=== PATIENT | female | born 1950 | race Caucasian/White ===

== ENCOUNTER 2017-09-01 13:48 | Outpatient (CLI) | payer MEDICARE, BC ==
--- NOTE | 2017-09-01 14:45 | MMO ---
BILATERAL DIGITAL SCREENING MAMMOGRAMS WITH CAD COMPARISON: 07/22/2016, 07/28/2015, and 05/02/2014. FINDINGS: There are scattered fibroglandular densities with occasional benign calcifications. No suspicious m asses, calcifications, or architectural distortion are seen. IMPRESSION: BI-RADS Category 2: Benign findings. Routine annual mammographic screening is recommended. POS: CYNTHIA
== END 2017-09-01 13:49 | disposition home or self-care (01) ==
LOC: MAMMO 13:48
PROVIDERS: ATTEND Family Medicine
DX: Z12.31 Encounter for screening mammogram for malignant neoplasm of breast (principal)
CPT/HCPCS: 77067; G0202

== ENCOUNTER 2018-09-26 10:38 | Outpatient (CLI) | payer MEDICARE, BC | END 2018-09-26 10:39 | disposition home or self-care (01) | LOC: BICMAMMO 10:38 | PROVIDERS: ATTEND Family Medicine | DX: Z12.31 Encounter for screening mammogram for malignant neoplasm of breast (principal) | CPT/HCPCS: 77063; 77067 ==

== ENCOUNTER 2019-11-10 10:32 | Outpatient (CLI) | payer MEDICARE, BC ==
--- NOTE | 2019-11-10 11:49 | MMO ---
Bilateral MAMMO Bilat Screen [facility]. CLINICAL HISTORY: Patient is 69 years old and is seen for screening. The patient has no family history of breast cancer. The patient has no personal history of cancer. VIEWS: The views performed were: bilateral craniocaudal with tomosynthesis and bilateral mediolateral oblique with tomosynthesis. FILMS COMPARED: The present examination has been compared to prior imaging studies performed at [facility] on 06/26/2015, 07/22/2016, 09/01/2017 and 09/26/2018. This study has been interpreted with the assistance of computer-aided detection. MAMMOGRAM FINDINGS: There are scattered fibroglandular densities. There are benign appearing calcifications seen in both breasts. There are no suspicious masses, suspicious calcifications, or new areas of architectural distortion. IMPRESSION: THERE IS NO MAMMOGRAPHIC EVIDENCE OF MALIGNANCY. A ROUTINE FOLLOW-UP MAMMOGRAM IN 1 YEAR IS RECOMMENDED. THE RESULTS OF THIS EXAM WERE SENT TO THE PATIENT. ACR BI-RADS Category 2 - Benign finding MAMMOGRAPHY NOTE: 1. A negative mammogram report should not delay a biopsy if a dominant of clinically suspicious mass is present. 2. Approximately 10% to 15% of breast cancers are not detected by mammography. 3. Adenosis and dense breasts may obscure an underlying neoplasm. Reported by: VONDA RAMÍREZ MD Electonically Signed: [id number]
== END 2019-11-10 10:33 | disposition home or self-care (01) ==
LOC: BICMAMMO 10:32
PROVIDERS: ATTEND Family Medicine
DX: Z12.31 Encounter for screening mammogram for malignant neoplasm of breast (principal)
CPT/HCPCS: 77063; 77067

== ENCOUNTER 2020-03-15 22:02 | Inpatient (IN) | payer MEDICARE, BC ==
[~2020-03-15 22:02] MED LIST: Iopamidol 370 76% 100 ML VIAL ONE
[2020-03-15 23:31] LABS: #Eosinphils 0.1 thou/uL (0.0-0.7); #Lymphocytes 2.5 thou/uL (1.20-3.40); #Neutrophils 8.9 thou/uL (1.40-6.50); %Basophils 0.2 % (0.0-1.0); %Eosinophils 0.5 % (0.0-10.0); %Monocytes 8.2 % (0.0-10.0); %Neutrophils 71.2 % (42.0-75.0); Hemoglobin 13.3 g/dL (12.0-16.0); Mean Corpuscular HGB CONC 32.3 g/dL (32.0-36.0); Mean Corpuscular Hemoglobin 28.9 pg (27.0-31.0); Mean Corpuscular Volume 89.3 fL (78.0-98.0); Mean Platelet Volume 7.8 fL (7.4-10.4); Platelet Count 323 thou/uL (130-400); RBC Distribution Width 11.3 % (11.5-14.5); Red Blood Cell (RBC) Count 4.59 mill/uL (4.20-5.40); White Blood Cell (WBC) Count 12.5 thou/uL (4.8-10.8)
[2020-03-15 23:52] LABS: Bilirubin Negative (Negative); Blood, Urine Negative (Negative); Clarity Clear (Clear); Glucose, Urine (Dipstick) Normal (Negative); Leukocyte 75 Leu/uL (Negative); Nitrite Negative (Negative); Protein, Urine (Dipstick) Negative (Neg-Trace); Urobilinogen Normal mg/dL (Less than 2); WBC/HPF 0-3 HPF (0-3)
[2020-03-15 23:53] LABS: Bacteria/HPF Rare-Few HPF (None Seen)
[2020-03-15 23:57] LABS: ALT (SGPT) 14 U/L (8-55); AST (SGOT) 16 U/L (5-34); Albumin 3.9 g/dL (3.4-4.8); Alkaline Phosphatase 87 U/L (40-110); Anion Gap 16 mmol/L (10-20); BUN (Urea Nitrogen) 12 mg/dL (9.8-20.1); Bilirubin, Total 0.3 mg/dL (0.2-1.2); Calc. Creatinine Clearance 0 mL/min (70-130); Calcium 9.8 mg/dL (7.8-10.44); Carbon Dioxide 26 mmol/L (23-31); Chloride 98 mmol/L (98-107); Estimated GFR-MDRD Greater than 90; Globulin 3.4 g/dL (2.4-3.5); Glucose 137 mg/dL (80-115); Lipase 14 U/L (8-78); Potassium 3.5 mmol/L (3.5-5.1); Protein, Total 7.3 g/dL (6.0-8.3); Sodium 136 mmol/L (136-145)
[2020-03-16] MEDS ORDERED: Piperacillin/Tazobactam 4.5 GM VIAL ONE (02:31)
[2020-03-16] MEDS ORDERED: metroNIDAZOLE 500 MG in Premix Bag 1 BAG IVPB SCH (02:45)
[2020-03-16 03:55] VITALS: BMI 37.3
[2020-03-16] MEDS ORDERED: Ondansetron PF 4 MG/2 ML Vial IVP PRN (04:26)
[2020-03-16] MEDS ORDERED: Acetaminophen 650 MG Suppository PR PRN (04:26)
[2020-03-16] MEDS ORDERED: Ondansetron ODT 4 MG TAB PO PRN (04:26)
--- NOTE | 2020-03-16 04:34 | PDOC.HHP ---
Hospitalist HPI - History of Present Illness abd pain fever History of Present Illness: Case of an 69y/o fem w pmhx of hypercholesterolemia, cad and htn who comes to hospital due to fever. patient refers she was on her usual state of health until wednesday when she started with fever and abd pain, she went to an ed where she was dx with diverticulitis and sent home with rest and po abx. patient refered she finished her treatment but continued with some symptoms so she called her pcp wich prescribed augmentin. patient states that despite this today she was not feeling well and a 101 fever for which she came to hospital for evaluation. here patient had a ct which showed diverticulitis with abscess for which hospitalist was called for further management and evaluation. Hospitalist ROS - Review of Systems All other systems reviewed; all pertinent +/- noted in HPI/Subj Hospitalist History - Past Medical History Cardiac: reports: CAD, HTN, Hyperlipidemia - Past Surgical History Past Surgical History: reports: Appendectomy, , Hysterectomy - Family History Family History: reports: hypertension - Social History Smoking Status: Never smoker Alcohol: reports: None Drugs: reports: none Living Situation: With Family Activity level: independent ambulation - Exam General Appearance: awake alert Eye: PERRL, anicteric sclera ENT: normocephalic atraumatic, no oropharyngeal lesions Neck: supple, symmetric, no JVD, no thyromegaly Heart: RRR, no murmur, no gallops, no rubs Respiratory: CTAB, no wheezes, no rales, no ronchi Gastrointestinal: soft, non-distended, normal bowel sounds, tender to palpation Extremities: no cyanosis, no clubbing, no edema Skin: normal turgor, no lesions, no rashes Neurological: cranial nerve grossly intact, normal sensation to touch, no weakness, no focal deficits, no new deficit Musculoskeletal: normal tone, normal strength, no muscle wasting Psychiatric: normal affect, normal behavior, A&O x 3 Hospitalist Results - Labs Result Diagrams: 03/15/20 23:18 03/15/20 23:18 Lab results: WBC 12.5 thou/uL (4.8-10.8) H 03/15/20 23:18 Hgb 13.3 g/dL (12.0-16.0) 03/15/20 23:18 Hct 41.0 % (36.0-47.0) 03/15/20 23:18 MCV 89.3 fL (78.0-98.0) 03/15/20 23:18 Plt Count 323 thou/uL (130-400) 03/15/20 23:18 Neutrophils % 71.2 % (42.0-75.0) 03/15/20 23:18 Sodium 136 mmol/L (136-145) 03/15/20 23:18 Potassium 3.5 mmol/L (3.5-5.1) 03/15/20 23:18 Chloride 98 mmol/L (98-107) 03/15/20 23:18 Carbon Dioxide 26 mmol/L (23-31) 03/15/20 23:18 BUN 12 mg/dL (9.8-20.1) 03/15/20 23:18 Creatinine 0.64 mg/dL (0.6-1.1) 03/15/20 23:18 Glucose 137 mg/dL (80-115) H 03/15/20 23:18 Calcium 9.8 mg/dL (7.8-10.44) 03/15/20 23:18 Total Bilirubin 0.3 mg/dL (0.2-1.2) 03/15/20 23:18 AST 16 U/L (5-34) 03/15/20 23:18 ALT 14 U/L (8-55) 03/15/20 23:18 Alkaline Phosphatase 87 U/L (40-110) 03/15/20 23:18 Serum Total Protein 7.3 g/dL (6.0-8.3) 03/15/20 23:18 Albumin 3.9 g/dL (3.4-4.8) 03/15/20 23:18 Lipase 14 U/L (8-78) 03/15/20 23:18 Urine Ketones Negative mg/dL (Negative) 03/15/20 23:29 Urine Blood Negative (Negative) 03/15/20 23:29 Urine Nitrite Negative (Negative) 03/15/20 23:29 Ur Leukocyte Esterase 75 Usha/uL (Negative) A 03/15/20 23:29 Urine RBC 4-6 HPF (0-3) A 03/15/20 23:29 Urine WBC 0-3 HPF (0-3) 03/15/20 23:29 Ur Squamous Epith Cells 4-6 HPF (0-3) A 03/15/20 23:29 Urine Bacteria Rare-Few HPF (None Seen) 03/15/20 23:29 - Radiology Interpretation CT scan - abdomen Status: report reviewed by me (diverticulitis with abscess) Hospitalist H&P A/P - Problem (1) Diverticulitis Code(s): K57.92 - DVTRCLI OF INTEST, PART UNSP, W/O PERF OR ABSCESS W/O BLEED Status: Acute (2) Abdominal abscess Code(s): CHL6550 - Status: Acute (3) HTN (hypertension) Code(s): I10 - ESSENTIAL (PRIMARY) HYPERTENSION Status: Acute (4) Hypercholesterolemia Code(s): E78.00 - PURE HYPERCHOLESTEROLEMIA, UNSPECIFIED Status: Acute - Plan Plan: diverticulitis with abscess - will place on npo, started on ivfs and iv abx with zosyn and clinda. blood cultures were taken, general surgeon consulted, might consider interventional radiologist htn - continue home meds when able hypercholesterolemia - continue home meds when able
[2020-03-16] MEDS: Sodium Chloride 0.9% 1,000 ML IV SCH ×2 (05:02→18:30)
--- NOTE | 2020-03-16 07:55 | CT ---
PRELIMINARY REPORT/[facility]/EMERGENCY AFTER HOURS PROCEDURE EXAM: CT Abdomen and CT Pelvis, with Contrast DATE/ TIME: 03/16/2020, 12:23 AM INDICATION: Rectal bleeding x 2-3 weeks; nausea; intermittent upper abdominal pain TECHNIQUE: Helical CT was performed through the abdomen and pelvis during the intravenous administra tion of 100 mL Isovue-370. GI contrast was not given. Coronal and sagittal reconstructions were generated and reviewed. Exam was performed using one or more of the following dose reduction techniq ues: automated exposure control, adjustment of the mA and/or kV according to patient size, or use of iterative reconstruction technique. COMPARISON: None. FINDINGS: The initial image begins at the subaortic valvular level. Asymmetric elevation of the rig ht hemidiaphragm is present with the dome of the diaphragm and liver are clipped from view. Visualized heart shows left atrial enlargement. Calcified atheroma in the posterior descending coron sandie artery is seen. Visualized lung bases are clear. Gallbladder is unremarkable. Visualized liver has a coarse parenchymal pattern and is hypoattenuated consistent with fatty infiltration. Pancreas is mildly atrophic. Spleen, adrenal glands and left kidney show normal enhancement. Right kidney has a 1.4 x 0.9 cm angiomyolipoma. Mild left hydrouret eronephrosis is seen. The abdominal aorta tapers containing moderate atherosclerotic calcified plaque which continues into the common iliac arteries. Appendix is not seen but there is no pericecal abnormality to suggest acute appendicitis. There is a phlegmon involving the sigmoid in the left mid pelvic region. Innumerable diverticula in the descending and sigmoidal segments of the colon are noted. Along the lateral margin of the inflamed s igmoid is a 3.7 x 3.4 x 3.7 cm fluid collection compatible with abscess. There is no perforation. Retroperitoneal edema fluid is seen. This process is distorting the bladder which shows subjacent re active wall thickening. This process also is compromising the distal left ureter causing the mild left hydroureteronephrosis. Uterus is absent. A moderate amount of retroperitoneal, intra-abdominal and extra-abdominal adipose tissue is seen. Di scogenic degenerative changes are seen throughout the spine with spondylosis in the visualized thoracic spine. IMPRESSION: 1. Fairly diffuse sigmoidal diverticulitis with intramural/ subjacent 3.7 x 3.4 x 3.7 cm abscess. --- a. associated reactive wall thickening of the urinary bladder. --- b. mild left hydroureteronephrosis due to compromise of the distal left ureter. --- c. left-sided colonic diverticulosis. --- d. a coexistent neoplastic process of the sigmoid cannot be excluded. 2. Cardiomegaly with coronary and aortoiliac atherosclerosis. 3. Hepatosteatosis. ELECTRONICALLY SIGNED BY: Anson Grullon DO March 16, 2020 1:26:17 AM CDT This report is intended for review by the ordering physician only, in accordance of law. If you recei ve this report in error, please call [facility] at [phone]. FINAL REPORT EXAM: CT ABDOMEN AND PELVIS HISTORY: Fever. Abdominal pain. COMPARISON: 02/18/2020 Procedure: Multiple contiguous axial images were obtained and a CT of the abdomen and pelvis with IV contrast. C oronal reformats were performed. FINDINGS: Lower Chest: within normal limits. Vessels: Normal caliber aorta. There is atherosclerosis Heart: Heart is enlarged. No significant pericardial fluid Abdomen: Portal vein:Patent Gallbladder: No calcified gallstones. Normal caliber wall. Liver: within normal limits. Pancreas: within normal limits. Spleen: within normal limits. Adrenals: within normal limits. Kidneys: Stable fat-containing hypodensity in the upper pole of right kidney. No evidence of right-si ded obstructive uropathy. There is mild dilatation of the left intra and extrarenal collecting system likely due to decreased motility from reactive changes secondary to an inflammatory process in the left hemipelvis. Peritoneum: No ascites or free air, no fluid collection. Bowel: Limited evaluation due to the lack of oral contrast administration. No small bowel obstruction . Ileocecal junction has a normal appearance. Appendix is difficult to appreciate. Redemonstration of diverticulosis the left hemicolon. Redemonstration of diverticulitis. Interval development of a fl uid collection with adjacent fat stranding in the left hemipelvis. Well-defined borders are not entirely evident. Lesion measures 2.8 x 3.8 cm. Developing abscess is favored. Mesentery and Retroperitoneum: No enlarged mesenteric or retroperitoneal lymph nodes. Abdominal Wall: within normal limits. Pelvis: Reproductive Organs: Uterus is surgically absent Pelvis: There is fluid and stranding in the pelvis secondary to aforementioned developing abscess in the left hemipelvis Bladder: Mass effect upon the urinary bladder secondary to inflammatory changes of left hemipelvis Bones: within normal limits. IMPRESSION: 1. This report is in agreement with the initial report by [facility]. 2. Diverticulosis along with diverticulitis involving the sigmoid colon. Associated findings as descr ibed in the initial report by [facility]. 3. Based on the location of the abscess, percutaneous drainage will not be possible. Transcribed Date/Time: 03/16/2020 8:05 AM
[2020-03-16] MEDS: Bisacodyl 10 MG SUPP PR PRN (08:43)
[2020-03-16] MEDS ORDERED: Piperacillin/Tazobactam 4.5 GM in Sodium Chloride 0.9% 100 ML IVPB SCH (09:00)
[2020-03-16] MEDS ORDERED: Piperacillin/Tazobactam 3.375 GM in Sodium Chloride 0.9% 100 ML IVPB SCH (12:00)
[2020-03-16] MEDS ORDERED: Clopidogrel Bisulfate 75 MG TAB PO SCH (14:00)
[2020-03-16] MEDS ORDERED: Nadolol 40 MG TAB PO SCH (14:00)
[2020-03-16] MEDS ORDERED: Aspirin 81 mg Enteric Coated Tablet PO SCH (14:00)
[2020-03-16] MEDS ORDERED: Hydrochlorothiazide 25 MG TAB PO SCH (14:00)
[2020-03-16] MEDS ORDERED: Rosuvastatin 10 MG TAB PO SCH (14:00)
[2020-03-16] MEDS ORDERED: Amlodipine 5 MG TAB PO SCH (14:00)
[2020-03-16] MEDS: Piperacillin/Tazobactam 3.375 GM in Sodium Chloride 0.9% 100 ML IVPB SCH ×2 (14:08→20:35)
--- NOTE | 2020-03-16 14:18 | CON ---
DATE OF CONSULTATION: 03/16/2020 CHIEF COMPLAINT: Diverticulitis. HISTORY OF PRESENT ILLNESS: This is a 69-year-old female who was diagnosed with diverticulitis in February, was placed on outpatient antibiotics. She returns with fevers and increased pain and bloating. She had a bowel movement this morning. She feels better. Her pain is more controlled. She states that her pain is only mild now, sharp in the left lower quadrant. She had fever to 101 at home. Other than when this started last night, she had never had diverticulitis before. No previous colon surgery. She has had through lower midline incision twice. She has never had colonoscopy. She said she does the stool tests for that. No family history of GI malignancy, colon cancer, or polyposis syndrome. She denies chronic blood in stool, fever, chills, nausea, vomiting, or anorexia. PAST MEDICAL HISTORY: Includes: 1. Hypertension. 2. Dyslipidemia. 3. GERD. SURGICAL HISTORY: . MEDICINES: 1. Estradiol. 2. Plavix. 3. Ramipril. 4. Nexium. 5. Nadolol. 6. Crestor. 7. Aspirin. 8. Hydrochlorothiazide. 9. Amlodipine. ALLERGIES: NO KNOWN DRUG ALLERGIES. SOCIAL HISTORY: She denies smoking, alcohol, or other drugs. She is . REVIEW OF SYSTEMS: Ten-system review of systems is otherwise negative unless described above. PHYSICAL EXAMINATION: VITAL SIGNS: Her pulse is 90, respirations 17, temperature is afebrile, blood pressure is 138/69. HEENT: Sclerae are anicteric. Oropharynx clear. NECK: No lymphadenopathy. CHEST: Clear. HEART: Regular rate. ABDOMEN: Soft. She is mildly tender in the left lower quadrant with localized guarding. No rebound. No diffuse peritoneal signs. Well-healed low midline incision without hernia. LABORATORY DATA: White blood cell count is 12 and hemoglobin is 13. Creatinine is 0.64. CT scan reveals diverticulitis with left lower quadrant abscess. ASSESSMENT: Diverticulitis with localized abscess. PLAN: I discussed with Dr. Hernández. This is unlikely to be accessible via perc drain. I recommend continue hospitalization for IV antibiotics. Zosyn is adequate antibiotic coverage. He is going to discuss with the radiologist to see if they think that it is possible to perc drain this abscess. If not, likely going to need a surgery during this hospitalization. Would attempt to do prep before that, that surgery would not be performed until probably mid week. Continue IV antibiotics for now. We will allow clear liquids today given that she is not going to have any invasive procedures. Job ID: [id number]
[2020-03-16] MEDS: Estradiol 1 MG TAB PO SCH (20:28)
[2020-03-16] MEDS: Ramipril 5 MG CAP PO SCH (20:29)
[2020-03-16] MEDS ORDERED: Ramipril 5 MG CAP PO SCH (21:00)
[2020-03-17] MEDS: Sodium Chloride 0.9% 1,000 ML IV SCH (00:46)
[2020-03-17] MEDS: Piperacillin/Tazobactam 3.375 GM in Sodium Chloride 0.9% 100 ML IVPB SCH ×4 (03:18→20:19)
[2020-03-17 06:11] LABS: #Eosinphils 0.1 thou/uL (0.0-0.7); #Lymphocytes 2.3 thou/uL (1.20-3.40); #Monocytes 0.9 thou/uL (0.11-0.59); %Basophils 0.3 % (0.0-1.0); %Eosinophils 0.6 % (0.0-10.0); %Lymphocytes 16.9 % (21.0-51.0); %Monocytes 6.8 % (0.0-10.0); %Neutrophils 75.4 % (42.0-75.0); Hemoglobin 12.4 g/dL (12.0-16.0); Mean Corpuscular HGB CONC 31.7 g/dL (32.0-36.0); Mean Corpuscular Hemoglobin 28.9 pg (27.0-31.0); Mean Corpuscular Volume 91.2 fL (78.0-98.0); Mean Platelet Volume 8.5 fL (7.4-10.4); Platelet Count 303 thou/uL (130-400); RBC Distribution Width 11.3 % (11.5-14.5); Red Blood Cell (RBC) Count 4.28 mill/uL (4.20-5.40); White Blood Cell (WBC) Count 13.3 thou/uL (4.8-10.8)
[2020-03-17 06:19] LABS: ALT (SGPT) 9 U/L (8-55); AST (SGOT) 8 U/L (5-34); Albumin 3.3 g/dL (3.4-4.8); Alkaline Phosphatase 69 U/L (40-110); Anion Gap 13 mmol/L (10-20); BUN (Urea Nitrogen) 7 mg/dL (9.8-20.1); Bilirubin, Total 0.4 mg/dL (0.2-1.2); Calc. Creatinine Clearance 130 mL/min (70-130); Calcium 8.9 mg/dL (7.8-10.44); Carbon Dioxide 24 mmol/L (23-31); Chloride 102 mmol/L (98-107); Estimated GFR-MDRD Greater than 90; Globulin 2.8 g/dL (2.4-3.5); Glucose 133 mg/dL (80-115); Protein, Total 6.1 g/dL (6.0-8.3); Sodium 136 mmol/L (136-145)
[2020-03-17 06:48] LABS: Potassium 2.9 mmol/L (3.5-5.1)
--- NOTE | 2020-03-17 07:21 | PDOC.HOSPP ---
- Subjective Encounter Date: 03/16/20 Encounter Time: 11:00 Subjective: Ms. Vail was seen today in follow-up of abdominal pain and diverticulitis. She denies having pain at this time. No new complaints. - Objective Vital Signs & Weight: Vital Signs (12 hours) Temp Pulse Resp BP BP BP Pulse Ox 03/17/20 00:50 99.0 F 74 16 136/60 95 03/16/20 20:30 98.8 F 80 16 132/62 96 03/16/20 20:29 132/62 Weight Admit Weight 191 lb 4 oz Weight 191 lb 4 oz I&O: 03/16/20 03/17/20 03/18/20 06:59 06:59 06:59 Intake Total 100 1560 Balance 100 1560 Result Diagrams: 03/17/20 05:50 03/17/20 05:50 Hospitalist ROS - Medication Medications: Active Medications Generic Name Dose Route Start Last Admin Trade Name Freq PRN Reason Stop Dose Admin Bisacodyl 10 mg 03/16/20 06:08 03/16/20 08:43 Dulcolax ND 10 mg PRN PRN Administration Constipation Estradiol 1 mg 03/16/20 21:00 03/16/20 20:28 Estrace PO 1 mg HS RUDY Administration Sodium Chloride 1,000 mls @ 70 mls/hr 03/16/20 04:30 03/17/20 00:46 Normal Saline 0.9% IV 1,000 mls .[id number] RUDY Administration Piperacillin Sod/Tazobactam 100 mls @ 200 mls/hr 03/16/20 15:00 03/17/20 03: 18 Sod 3.375 gm/ Sodium Chloride IVPB 100 mls 0300,0900,1500,2100 RUDY Administration Ramipril 10 mg 03/16/20 21:00 03/16/20 20:29 Altace PO 10 mg HS RUDY Administration Sodium Chloride 10 ml 03/16/20 09:00 03/16/20 20:24 Flush - Normal Saline IVF 10 ml Q12HR RUDY Administration - Exam Eye: PERRL, anicteric sclera Heart: RRR, no murmur, no gallops, no rubs, normal peripheral pulses Respiratory: CTAB, no wheezes, no rales, no ronchi, normal chest expansion Gastrointestinal: soft, non-tender, non-distended, normal bowel sounds Extremities: no cyanosis, no clubbing, no edema Hosp A/P (1) Intestinal diverticular abscess Code(s): K63.0 - ABSCESS OF INTESTINE Status: Acute (2) HTN (hypertension) Code(s): I10 - ESSENTIAL (PRIMARY) HYPERTENSION Status: Chronic - Plan * Diverticulitis with Abscess- continue IV antibiotics * Plan is for IR drainage of the abscess vs. Surgical drainage * HTN- blood pressure is stable- will re-start her home medications.
[2020-03-17] MEDS ORDERED: Potassium Chloride 20 MEQ in Premix Bag 1 BAG IVPB SCH ×2 (07:30→09:15)
[2020-03-17] MEDS ORDERED: Potassium Chloride 20 MEQ TAB PO SCH ×2 (07:30→12:00)
[2020-03-17] MEDS: Rosuvastatin 10 MG TAB PO SCH (08:52)
[2020-03-17] MEDS: Amlodipine 5 MG TAB PO SCH (08:52)
[2020-03-17] MEDS: Nadolol 40 MG TAB PO SCH (08:54)
[2020-03-17] MEDS: Ramipril 5 MG CAP PO SCH ×2 (08:55→20:20)
[2020-03-17] MEDS ORDERED: Hydrochlorothiazide 25 MG TAB PO SCH (09:00)
[2020-03-17] MEDS ORDERED: Clopidogrel Bisulfate 75 MG TAB PO SCH (09:00)
[2020-03-17] MEDS ORDERED: Aspirin 81 mg Enteric Coated Tablet PO SCH (09:00)
[2020-03-17] MEDS: Nystatin 500,000 UNITS/5 ML UDCUP SSW SCH ×4 (09:12→20:19)
--- NOTE | 2020-03-17 10:42 | PDOC.HOSPP ---
- Subjective Encounter Date: 03/17/20 Encounter Time: 10:00 Subjective: Ms. Vail is seen as a follow up for abdominal pain and diverticulitis. She states she is feeling good today. - Objective Vital Signs & Weight: Vital Signs (12 hours) Temp Pulse Resp BP BP Pulse Ox 03/17/20 08:55 132/62 03/17/20 08:52 74 03/17/20 00:50 99.0 F 74 16 136/60 95 Weight Admit Weight 191 lb 4 oz Weight 191 lb 4 oz I&O: 03/16/20 03/17/20 03/18/20 06:59 06:59 06:59 Intake Total 100 1560 Balance 100 1560 Result Diagrams: 03/17/20 05:50 03/17/20 05:50 Hospitalist ROS - Medication Medications: Active Medications Generic Name Dose Route Start Last Admin Trade Name Freq PRN Reason Stop Dose Admin Amlodipine Besylate 2.5 mg 03/17/20 09:00 03/17/20 08:52 Norvasc PO 2.5 mg DAILY RUDY Administration Bisacodyl 10 mg 03/16/20 06:08 03/16/20 08:43 Dulcolax WI 10 mg PRN PRN Administration Constipation Estradiol 1 mg 03/16/20 21:00 03/16/20 20:28 Estrace PO 1 mg HS RUDY Administration Sodium Chloride 1,000 mls @ 70 mls/hr 03/16/20 04:30 03/17/20 00:46 Normal Saline 0.9% IV 1,000 mls .[id number] RUDY Administration Piperacillin Sod/Tazobactam 100 mls @ 200 mls/hr 03/16/20 15:00 03/17/20 08: 54 Sod 3.375 gm/ Sodium Chloride IVPB 100 mls 0300,0900,1500,2100 RUDY Administration Nadolol 40 mg 03/17/20 09:00 03/17/20 08:54 Corgard PO 40 mg QAM RUDY Administration Nystatin 500,000 units 03/17/20 09:00 03/17/20 09:12 Mycostatin SSW 500,000 units QID RUDY Administration Pantoprazole Sodium 40 mg 03/17/20 09:00 03/17/20 08:52 Protonix PO 40 mg DAILY RUDY Administration Ramipril 10 mg 03/16/20 21:00 03/16/20 20:29 Altace PO 10 mg HS RUDY Administration Ramipril 20 mg 03/17/20 09:00 03/17/20 08:55 Altace PO 20 mg QAM RUDY Administration Rosuvastatin Calcium 10 mg 03/17/20 09:00 03/17/20 08:52 Crestor PO 10 mg QAM RUDY Administration Sodium Chloride 10 ml 03/16/20 09:00 03/17/20 09:12 Flush - Normal Saline IVF 10 ml Q12HR RUDY Administration - Exam General Appearance: NAD, awake alert Neck: supple, symmetric, no JVD, no lymphadenopathy Heart: RRR, no murmur, no gallops, no rubs, normal peripheral pulses Respiratory: CTAB, no wheezes, no rales, no ronchi Gastrointestinal: soft, non-tender, non-distended, normal bowel sounds Extremities: no cyanosis, no edema Neurological: no focal deficits Psychiatric: normal affect, normal behavior Hosp A/P (1) Intestinal diverticular abscess Code(s): K63.0 - ABSCESS OF INTESTINE Status: Acute (2) Hypokalemia Code(s): E87.6 - HYPOKALEMIA Status: Acute (3) HTN (hypertension) Code(s): I10 - ESSENTIAL (PRIMARY) HYPERTENSION Status: Chronic - Plan INtestinal diverticular abscess: continue Zosyn Hypokalemia: replace potassium HTN: restarted home medications, continue to monitor Surgery following and participating in care- still a possibility to have surgery mid week
--- NOTE | 2020-03-17 11:14 | PRG ---
DATE OF SERVICE: 03/17/2020 SUBJECTIVE: Ms. Vail feels better, tolerates the liquids without difficulty. OBJECTIVE: She is afebrile. Her vital signs are stable. Her abdomen is soft. She still has left lower quadrant guarding, but no rebound tenderness. No diffuse peritoneal signs. LABORATORY DATA: White blood cell count today is 13 with no bands. Creatinine 0.56. ASSESSMENT: Localized [id number] diverticulitis with abscess, not drainable percutaneously. PLAN: We will continue IV antibiotics and clear liquids. Hopefully, she will clinically improve. If she clinically improves, we will convert back to p.o. antibiotics in a few days and send her home for followup CT in the next few weeks; however, if she does not continue to clinically improve, we will need colon resection likely with colostomy or ostomy. Job ID: [id number]
[2020-03-17 15:41] LABS: Anion Gap 14 mmol/L (10-20); BUN (Urea Nitrogen) 5 mg/dL (9.8-20.1); Calc. Creatinine Clearance 137 mL/min (70-130); Carbon Dioxide 25 mmol/L (23-31); Chloride 104 mmol/L (98-107); Estimated GFR-MDRD Greater than 90; Glucose 115 mg/dL (80-115); Magnesium 1.8 mg/dL (1.6-2.6); Potassium 3.7 mmol/L (3.5-5.1); Sodium 139 mmol/L (136-145)
--- NOTE | 2020-03-17 17:23 | PDOC.EVN ---
Event Note - Event Note Event Note: Patient seen and examined and discussed with Afshan MARTIN., and agree with her assessment. Ms. Vail denies having any abdominal pain today. On exam , she has some mild LLQ tenderness, no rebound or guarding. Bowel sounds are present. Will continue IV antibiotics, hopefully she can avoid the need for surgery. Will follow.
[2020-03-17] MEDS: Acetaminophen 325 MG TAB PO PRN (20:19)
[2020-03-17] MEDS: Estradiol 1 MG TAB PO SCH (20:20)
[2020-03-18] MEDS: Piperacillin/Tazobactam 3.375 GM in Sodium Chloride 0.9% 100 ML IVPB SCH ×4 (02:19→21:13)
[2020-03-18 05:27] LABS: #Eosinphils 0.1 thou/uL (0.0-0.7); #Lymphocytes 1.9 thou/uL (1.20-3.40); #Monocytes 0.9 thou/uL (0.11-0.59); #Neutrophils 8.3 thou/uL (1.40-6.50); %Basophils 0.3 % (0.0-1.0); %Eosinophils 0.9 % (0.0-10.0); %Lymphocytes 17.2 % (21.0-51.0); %Monocytes 7.6 % (0.0-10.0); Hemoglobin 12.5 g/dL (12.0-16.0); Mean Corpuscular HGB CONC 32.7 g/dL (32.0-36.0); Mean Corpuscular Hemoglobin 29.6 pg (27.0-31.0); Mean Corpuscular Volume 90.4 fL (78.0-98.0); Mean Platelet Volume 8.2 fL (7.4-10.4); Platelet Count 306 thou/uL (130-400); RBC Distribution Width 11.2 % (11.5-14.5); Red Blood Cell (RBC) Count 4.24 mill/uL (4.20-5.40); White Blood Cell (WBC) Count 11.2 thou/uL (4.8-10.8)
[2020-03-18 05:46] LABS: Anion Gap 16 mmol/L (10-20); BUN (Urea Nitrogen) 5 mg/dL (9.8-20.1); Calc. Creatinine Clearance 132 mL/min (70-130); Calcium 9.2 mg/dL (7.8-10.44); Carbon Dioxide 22 mmol/L (23-31); Chloride 104 mmol/L (98-107); Estimated GFR-MDRD Greater than 90; Glucose 128 mg/dL (80-115); Potassium 3.6 mmol/L (3.5-5.1); Sodium 138 mmol/L (136-145)
[2020-03-18] MEDS ORDERED: Loperamide HCl 2 MG CAP PO PRN (07:48)
[2020-03-18] MEDS ORDERED: Cepastat Lozenges 1 LOZ PO PRN (07:48)
[2020-03-18] MEDS ORDERED: Sodium Chloride 0.65% Nasal 44 ML BOT EA NARE PRN (07:48)
[2020-03-18] MEDS ORDERED: hydrALAZINE 20 MG/ML VIAL SLOW IVP PRN (07:48)
[2020-03-18] MEDS ORDERED: Zolpidem Tartrate 5 MG TAB PO PRN (07:48)
[2020-03-18] MEDS ORDERED: Artificial Tears 18 DROP/0.9 ML EA EYE PRN (07:48)
[2020-03-18] MEDS ORDERED: Calcium Carbonate 500 MG ChewTAB PO PRN (07:48)
[2020-03-18] MEDS ORDERED: HYDROcodone/Acetaminophen 5/325 mg Tablet PO PRN (07:48)
[2020-03-18] MEDS ORDERED: Loratadine 10 MG TAB PO PRN (07:48)
[2020-03-18] MEDS ORDERED: Diabetic Tussin 200 MG/10 ML UDCUP PO PRN (07:48)
[2020-03-18] MEDS ORDERED: Senokot S 8.6-50 MG TAB PO PRN (07:48)
[2020-03-18] MEDS: Ramipril 5 MG CAP PO SCH ×2 (08:33→21:12)
[2020-03-18] MEDS: Amlodipine 5 MG TAB PO SCH (08:34)
[2020-03-18] MEDS: Rosuvastatin 10 MG TAB PO SCH (08:35)
[2020-03-18] MEDS: Nystatin 500,000 UNITS/5 ML UDCUP SSW SCH ×4 (08:35→21:12)
[2020-03-18] MEDS: Nadolol 40 MG TAB PO SCH (08:35)
[2020-03-18] MEDS: Saccharomyces boulardii 250 MG CAP PO SCH (08:38)
--- NOTE | 2020-03-18 10:18 | PDOC.HOSPP ---
- Subjective Encounter Date: 03/18/20 Encounter Time: 09:45 Subjective: Patient seen and examined. No new complaints. No overnight events, pt feels improvement - Objective Vital Signs & Weight: Vital Signs (12 hours) Temp Pulse Resp BP BP BP Pulse Ox 03/18/20 08:34 69 177/80 H 03/18/20 08:33 177/80 H 03/18/20 08:15 98.4 F 72 18 159/57 H 97 03/17/20 23:37 98.4 F 69 12 138/65 94 L Weight Admit Weight 191 lb 4 oz Weight 191 lb 4 oz I&O: 03/17/20 03/18/20 03/19/20 06:59 06:59 06:59 Intake Total 1560 Balance 1560 Result Diagrams: 03/18/20 04:54 03/18/20 04:54 Hospitalist ROS - Review of Systems Constitutional: denies: fever, chills, sweats, weakness, malaise, other ENT: denies: ear pain, ear discharge, nose pain, nose discharge, nose congestion , mouth pain, mouth swelling, throat pain, throat swelling, other Respiratory: denies: cough, dry, shortness of breath, hemoptysis, SOB with excertion, pleuritic pain, sputum, wheezing, other Cardiovascular: denies: chest pain, palpitations, orthopnea, paroxysmal noc. dyspnea, edema, light headedness, other Gastrointestinal: reports: abdominal pain. denies: nausea, vomiting, diarrhea, constipation, melena, hematochezia, other Genitourinary: denies: dysuria, frequency, incontinence, hematuria, retention, other Musculoskeletal: denies: neck pain, shoulder pain, arm pain, back pain, hand pain, leg pain, foot pain, other Skin: denies: rash, lesions, annelise, bruising, other - Medication Medications: Active Medications Generic Name Dose Route Start Last Admin Trade Name Freq PRN Reason Stop Dose Admin Acetaminophen 650 mg 03/16/20 04:26 03/17/20 20:19 Tylenol PO 650 mg Q4H PRN Administration Headache/Fever/Mild Pain (1-3) Amlodipine Besylate 2.5 mg 03/17/20 09:00 03/18/20 08:34 Norvasc PO 2.5 mg DAILY RUDY Administration Bisacodyl 10 mg 03/16/20 06:08 03/16/20 08:43 Dulcolax [place] 10 mg PRN PRN Administration Constipation Estradiol 1 mg 03/16/20 21:00 03/17/20 20:20 Estrace PO 1 mg HS RUDY Administration Piperacillin Sod/Tazobactam 100 mls @ 200 mls/hr 03/16/20 15:00 03/18/20 08: 23 Sod 3.375 gm/ Sodium Chloride IVPB 100 mls 0300,0900,1500,2100 RUDY Administration Nadolol 40 mg 03/17/20 09:00 03/18/20 08:35 Corgard PO 40 mg QAM RUDY Administration Nystatin 500,000 units 03/17/20 09:00 03/18/20 08:35 Mycostatin SSW 500,000 units QID RUDY Administration Pantoprazole Sodium 40 mg 03/17/20 09:00 03/18/20 08:35 Protonix PO 40 mg DAILY RUDY Administration Ramipril 10 mg 03/16/20 21:00 03/17/20 20:20 Altace PO 10 mg HS RUDY Administration Ramipril 20 mg 03/17/20 09:00 03/18/20 08:33 Altace PO 20 mg QAM RUDY Administration Rosuvastatin Calcium 10 mg 03/17/20 09:00 03/18/20 08:35 Crestor PO 10 mg QAM RUDY Administration Saccharomyces Boulardii 250 mg 03/18/20 09:00 03/18/20 08:38 Florastor PO 250 mg DAILY RUDY Administration Senna/Docusate Sodium 2 tab 03/18/20 07:48 03/18/20 08:40 Senokot S PO 2 tab BID PRN Administration Constipation Sodium Chloride 10 ml 03/16/20 09:00 03/18/20 08:36 Flush - Normal Saline IVF 10 ml Q12HR RUDY Administration - Exam General Appearance: NAD, awake alert Eye: PERRL, anicteric sclera ENT: normocephalic atraumatic, no oropharyngeal lesions Neck: supple, symmetric, no JVD, no thyromegaly Heart: RRR, no murmur, no gallops, no rubs Respiratory: CTAB, no wheezes, no rales, no ronchi Gastrointestinal: soft, non-distended, normal bowel sounds Gastrointestinal - other findings: LLQ tenderness Extremities: no cyanosis, no clubbing, no edema Skin: normal turgor, no lesions Neurological: cranial nerve grossly intact, no focal deficits Hosp A/P (1) Diverticulitis of intestine with abscess without bleeding Code(s): K57.80 - DVTRCLI OF INTEST, PART UNSP, W PERF AND ABSCESS W/O BLEED Status: Acute Qualifiers: Diverticulitis site: large intestine Qualified Code(s): K57.20 - Diverticulitis of large intestine with perforation and abscess without bleeding (2) Hypercholesterolemia Code(s): E78.00 - PURE HYPERCHOLESTEROLEMIA, UNSPECIFIED Status: Chronic (3) Hypokalemia Code(s): E87.6 - HYPOKALEMIA Status: Resolved (4) HTN (hypertension) Code(s): I10 - ESSENTIAL (PRIMARY) HYPERTENSION Status: Chronic Qualifiers: Hypertension type: essential hypertension Qualified Code(s): I10 - Essential (primary) hypertension (5) Obesity (BMI 30-39.9) Code(s): E66.9 - OBESITY, UNSPECIFIED Status: Chronic (6) Fatty liver Code(s): K76.0 - FATTY (CHANGE OF) LIVER, NOT ELSEWHERE CLASSIFIED Status: Chronic - Plan old records reviewed/req, continue antibiotics continue liquid diet continue zosyn will repeat labs tomorrow pt has clinical improvement
[2020-03-18] MEDS ORDERED: Polyethylene Glycol 3350 17 GM Packet PO SCH (12:45)
--- NOTE | 2020-03-18 13:03 | PRG ---
DATE OF SERVICE: 03/18/2020 SUBJECTIVE: Ms. Vail is doing well. Her pain is nearly resolved. She is not having any nausea. She is constipated. She is hungry. OBJECTIVE: VITAL SIGNS: She is afebrile. Vital signs are stable. ABDOMEN: Soft. Tender in the left lower quadrant without guarding or rebound. EXTREMITIES: No ischemia or edema to extremities. ASSESSMENT: Diverticulitis, moderate to severe, with localized contained perforation, not amenable to perc drain, but clinically improving. PLAN: Continue IV antibiotics today. Advance diet. Will write for [facility]. Potentially home on oral antibiotics. Again, tomorrow if doing well. Job ID: [id number]
[2020-03-18] MEDS: Bisacodyl 10 MG SUPP PR PRN (17:00)
[2020-03-18] MEDS: Acetaminophen 325 MG TAB PO PRN (21:13)
[2020-03-18] MEDS: Estradiol 1 MG TAB PO SCH (21:13)
[2020-03-19] MEDS: Piperacillin/Tazobactam 3.375 GM in Sodium Chloride 0.9% 100 ML IVPB SCH ×2 (03:26→09:32)
[2020-03-19 06:53] LABS: #Eosinphils 0.1 thou/uL (0.0-0.7); #Lymphocytes 1.9 thou/uL (1.20-3.40); #Monocytes 0.6 thou/uL (0.11-0.59); #Neutrophils 7.5 thou/uL (1.40-6.50); %Basophils 0.5 % (0.0-1.0); %Eosinophils 0.8 % (0.0-10.0); %Lymphocytes 19.2 % (21.0-51.0); %Neutrophils 73.5 % (42.0-75.0); Hemoglobin 11.9 g/dL (12.0-16.0); Mean Corpuscular HGB CONC 32.4 g/dL (32.0-36.0); Mean Corpuscular Volume 89.5 fL (78.0-98.0); Mean Platelet Volume 7.6 fL (7.4-10.4); Platelet Count 356 thou/uL (130-400); RBC Distribution Width 11.2 % (11.5-14.5); Red Blood Cell (RBC) Count 4.11 mill/uL (4.20-5.40); White Blood Cell (WBC) Count 10.1 thou/uL (4.8-10.8)
[2020-03-19 06:58] LABS: Anion Gap 13 mmol/L (10-20); BUN (Urea Nitrogen) 5 mg/dL (9.8-20.1); CRP (Inflammatory) 8.66 mg/dL (= or < 0.5); Calc. Creatinine Clearance 125 mL/min (70-130); Carbon Dioxide 26 mmol/L (23-31); Chloride 104 mmol/L (98-107); Estimated GFR-MDRD Greater than 90; Glucose 122 mg/dL (80-115); Potassium 3.4 mmol/L (3.5-5.1); Sodium 140 mmol/L (136-145)
[2020-03-19] MEDS ORDERED: Potassium Chloride 20 MEQ TAB PO SCH (07:30)
[2020-03-19] MEDS ORDERED: Polyethylene Glycol 3350 17 GM Packet PO SCH (09:00)
[2020-03-19] MEDS: Amlodipine 5 MG TAB PO SCH (09:30)
[2020-03-19] MEDS: Saccharomyces boulardii 250 MG CAP PO SCH (09:31)
[2020-03-19] MEDS: Nadolol 40 MG TAB PO SCH (09:31)
[2020-03-19] MEDS: Rosuvastatin 10 MG TAB PO SCH (09:31)
[2020-03-19 09:32] VITALS: BP 160/87
[2020-03-19] MEDS: Nystatin 500,000 UNITS/5 ML UDCUP SSW SCH (09:32)
--- NOTE | 2020-03-19 09:38 | PDOC.HOSPP ---
- Subjective Encounter Date: 03/19/20 Encounter Time: :20 Subjective: Patient seen and examined. No new complaints. No overnight events after stool softener she had good BM - Objective Vital Signs & Weight: Vital Signs (12 hours) Pulse BP 03/19/20 09:30 80 160/87 H Weight Admit Weight 191 lb 4 oz Weight 191 lb 4 oz I&O: 03/18/20 03/19/20 03/20/20 06:59 06:59 06:59 Intake Total 1500 Balance 1500 Result Diagrams: 03/19/20 06:26 03/19/20 06:26 Hospitalist ROS - Review of Systems ENT: denies: ear pain, ear discharge, nose pain, nose discharge, nose congestion , mouth pain, mouth swelling, throat pain, throat swelling, other Respiratory: denies: cough, dry, shortness of breath, hemoptysis, SOB with excertion, pleuritic pain, sputum, wheezing, other Cardiovascular: denies: chest pain, palpitations, orthopnea, paroxysmal noc. dyspnea, edema, light headedness, other Gastrointestinal: denies: nausea, vomiting, abdominal pain, diarrhea, constipation, melena, hematochezia, other Genitourinary: denies: dysuria, frequency, incontinence, hematuria, retention, other Musculoskeletal: denies: neck pain, shoulder pain, arm pain, back pain, hand pain, leg pain, foot pain, other - Medication Medications: Active Medications Generic Name Dose Route Start Last Admin Trade Name Freq PRN Reason Stop Dose Admin Acetaminophen 650 mg 03/16/20 04:26 03/18/20 21:13 Tylenol PO 650 mg Q4H PRN Administration Headache/Fever/Mild Pain (1-3) Amlodipine Besylate 2.5 mg 03/17/20 09:00 03/19/20 09:30 Norvasc PO 2.5 mg DAILY RUDY Administration Bisacodyl 10 mg 03/16/20 06:08 03/18/20 17:00 Dulcolax PA 10 mg PRN PRN Administration Constipation Estradiol 1 mg 03/16/20 21:00 03/18/20 21:13 Estrace PO 1 mg HS RUDY Administration Piperacillin Sod/Tazobactam 100 mls @ 200 mls/hr 03/16/20 15:00 03/19/20 09: 32 Sod 3.375 gm/ Sodium Chloride IVPB 100 mls 0300,0900,1500,2100 RUDY Administration Nadolol 40 mg 03/17/20 09:00 03/19/20 09:31 Corgard PO 40 mg QAM RUDY Administration Nystatin 500,000 units 03/17/20 09:00 03/19/20 09:32 Mycostatin SSW 500,000 units QID RUDY Administration Pantoprazole Sodium 40 mg 03/17/20 09:00 03/19/20 09:31 Protonix PO 40 mg DAILY RUDY Administration Polyethylene Glycol 17 gm 03/19/20 09:00 03/19/20 09:31 Miralax PO Not Given DAILY RUDY Potassium Chloride 40 meq 03/19/20 09:45 03/19/20 09:35 Klor-Con PO 03/19/20 11:30 40 meq NOW RUDY Administration Ramipril 10 mg 03/16/20 21:00 03/18/20 21:12 Altace PO 10 mg HS RUDY Administration Ramipril 20 mg 03/17/20 09:00 03/18/20 08:33 Altace PO 20 mg QAM RUDY Administration Rosuvastatin Calcium 10 mg 03/17/20 09:00 03/19/20 09:31 Crestor PO 10 mg QAM RUDY Administration Saccharomyces Boulardii 250 mg 03/18/20 09:00 03/19/20 09:31 Florastor PO 250 mg DAILY RUDY Administration Senna/Docusate Sodium 2 tab 03/18/20 07:48 03/18/20 08:40 Senokot S PO 2 tab BID PRN Administration Constipation Sodium Chloride 10 ml 03/16/20 09:00 03/19/20 09:33 Flush - Normal Saline IVF 10 ml Q12HR RUDY Administration - Exam General Appearance: NAD, awake alert Eye: PERRL, anicteric sclera ENT: normocephalic atraumatic, no oropharyngeal lesions Neck: supple, symmetric, no JVD, no thyromegaly Heart: RRR, no murmur, no gallops, no rubs Respiratory: CTAB, no wheezes, no rales, no ronchi Gastrointestinal: soft, non-tender, non-distended, normal bowel sounds Extremities: no cyanosis, no clubbing, no edema Skin: normal turgor, no lesions Neurological: no focal deficits Musculoskeletal: normal tone, normal strength Hosp A/P (1) Diverticulitis of intestine with abscess without bleeding Code(s): K57.80 - DVTRCLI OF INTEST, PART UNSP, W PERF AND ABSCESS W/O BLEED Status: Acute Qualifiers: Diverticulitis site: large intestine Qualified Code(s): K57.20 - Diverticulitis of large intestine with perforation and abscess without bleeding (2) Hypercholesterolemia Code(s): E78.00 - PURE HYPERCHOLESTEROLEMIA, UNSPECIFIED Status: Chronic (3) Hypokalemia Code(s): E87.6 - HYPOKALEMIA Status: Resolved (4) HTN (hypertension) Code(s): I10 - ESSENTIAL (PRIMARY) HYPERTENSION Status: Chronic Qualifiers: Hypertension type: essential hypertension Qualified Code(s): I10 - Essential (primary) hypertension (5) Obesity (BMI 30-39.9) Code(s): E66.9 - OBESITY, UNSPECIFIED Status: Chronic (6) Fatty liver Code(s): K76.0 - FATTY (CHANGE OF) LIVER, NOT ELSEWHERE CLASSIFIED Status: Chronic - Plan old records reviewed/req, continue antibiotics continue liquid diet continue zosyn will repeat labs tomorrow pt has clinical improvement 03/19/20 continue zosyn here if plan for dc will change to augmentin possible dc pending surgeon clearance
[2020-03-19] MEDS: Ramipril 5 MG CAP PO SCH (09:49)
[2020-03-19 10:42] VITALS: TEMP 98.3
--- NOTE | 2020-03-19 11:06 | DIS ---
DATE OF ADMISSION: 03/16/2020 DATE OF DISCHARGE: 03/19/2020 PRIMARY CARE PHYSICIAN: Lasha Esqueda MD. DISCHARGE DISPOSITION: Home. PRIMARY DISCHARGE DIAGNOSIS: Sigmoid colon diverticulitis with abscess without perforation; hypokalemia, corrected. SECONDARY DISCHARGE DIAGNOSES: Obesity with body mass index 37; dyslipidemia; hypertension; fatty liver. PRIMARY PROCEDURE/OPERATION: None. RADIOLOGICAL INVESTIGATION: Abdomen and pelvis CT scan showed diffuse sigmoid diverticulitis with intramural abscess with associated urinary bladder wall thickening, reactive in nature, fatty liver. SIGNIFICANT LABORATORY DATA: WBC 10.1, hemoglobin 11.9, platelets 356. Sodium 140, potassium 3.4, BUN 5, creatinine 0.58. CRP 8.66. LFT normal. Urinalysis unremarkable. DISCHARGE MEDICATIONS: 1. Amlodipine 2.5 mg p.o. daily. 2. Aspirin 81 mg daily. 3. Plavix 75 mg daily. 4. Nexium 40 mg daily. 5. Estradiol 1 mg p.o. bedtime. 6. Hydrochlorothiazide 12.5 mg p.o. daily. 7. Nadolol 40 mg p.o. daily. 8. Ramipril 20 mg in the morning and 10 mg in the evening. 9. Crestor 10 mg p.o. bedtime. 10. Augmentin 875 mg p.o. twice daily for 12 more days. CONTRAINDICATION: None. CODE STATUS: Full code. INPATIENT MEDICINE TEACHER: Dr. Caldera was following while in hospital. TEST RESULT PENDING ON DISCHARGE: None. ALLERGIES: NO KNOWN DRUG ALLERGIES. DISCHARGE PLAN: Post-hospital, the patient will follow up with Dr. Caldera in 2 weeks. The patient is advised to follow up with primary care physician in 1 week. HOSPITAL COURSE: A 69-year-old female, who was admitted for left lower quadrant abdominal pain. The patient was diagnosed with diverticulitis with abscess. The patient was treated with Zosyn while in hospital. General Surgery was consulted. The patient had clinical improvement with Zosyn and that is why the patient was treated conservatively. The patient was tolerating diet. The patient's home medication was continued while in the hospital as well as on discharge. The patient is given dietary education about soft diet, and the patient will follow up with Dr. Caldera in 2 weeks. The patient will need the repeat imaging after 2 weeks. Red flag symptoms discussed with the patient to come back to emergency room. At this point, the patient is seen and examined at bedside today. The patient is overall medically stable for discharge. Job ID: [id number]
--- NOTE | 2020-03-20 06:53 | PQF ---
[employer] Reports Winform Viewer LEONOR ORTIZ HOWARD JOHNSTON MD [id number] CLINICAL DOCUMENTATION CLARIFICATION FORM: POST DISCHARGE Addendum to original discharge summary date: ____ Late entry note date: __ DATE: 03/20/20 ATTN:Howard Johnston Please exercise your independent, professional judgment in responding to the clarification form. Clinical indicators are provided on the bottom of this form for your review Can you please further clarify the diagnosis of the patient? Please check appropriate box(s): [ x ] Acute Sigmoid Diverticulitis with peritoneal abscess [ ] Acute Sigmoid Diverticulitis without peritoneal abscess [ ] Other diagnosis please specify [ ] Unable to determine In addition, please specify: Present on Admission (POA): [x ] Yes [ ] No [ ] Unable to determine For continuity of documentation, please document condition throughout progress notes and discharge summary. Thank You. CLINICAL INDICATORS - SIGNS / SYMPTOMS / LABS CT Abdomen/Pelvis pg.1- intramural/subjacent 3.7x 3.4x 3.7cm abscess H and P pg.1- abdominal pain, fever H and P pg.1- Diverticulitis with abscess H and P pg.3- abdominal abscess DS pg.1- sigmoid diverticulitis with intramural abscess Labs WBC: 03/15=12.5 03/17=13.3 03/18=11.2 03/19=10.1 Vital Signs 03/16: temp=99.1 Pulse=91 Respi=18 RY=038/61 RISK FACTORS Diverticulitis- H and P pg.2 Obesity- DS pg.1 69 years old- H and P pg.1 Fatty liver- DS pg.1 HTN- DS pg.1 TREATMENTS: Abdomen/Pelvis CT 03/15 GI Consult 03/16 Dr. Caldera IV Fluids- MAR Zosyn 4.5gm IV MAR Metronidazole 500mg IV- MAR (This form is maintained as a part of the permanent medical record) 2014 [employer] All Rights Reserved [email or web address]
== END 2020-03-19 12:10 | disposition home or self-care (01) | DRG 391 ==
LOC: ERS 22:02 → ONC 03-16 02:45 → ERS 03-16 03:33
PROVIDERS: ADMIT Internal Medicine; ATTEND Internal Medicine
DX: K57.20 Diverticulitis of large intestine with perforation and abscess without bleeding (principal); K65.1 Peritoneal abscess; E66.9 Obesity, unspecified; I10 Essential (primary) hypertension; K76.0 Fatty (change of) liver, not elsewhere classified; I25.10 Atherosclerotic heart disease of native coronary artery without angina pectoris; E78.5 Hyperlipidemia, unspecified; E78.00 Pure hypercholesterolemia, unspecified; E87.6 Hypokalemia; K59.00 Constipation, unspecified; Z86.12 Personal history of poliomyelitis; Z68.37 Body mass index [BMI] 37.0-37.9, adult; Z90.49 Acquired absence of other specified parts of digestive tract; Z90.710 Acquired absence of both cervix and uterus
CPT/HCPCS: 36415; 74177; 80048; 80053; 81003; 81015; 83690; 83735; 85025; 86140; 96365; 96375; J2543; J3480; J3490; Q9967

== ENCOUNTER 2021-01-29 11:45 | Outpatient (CLI) | payer MEDICARE, BC | END 2021-01-29 11:46 | disposition home or self-care (01) | LOC: BICMAMMO 11:45 | PROVIDERS: ATTEND Family Medicine | DX: Z12.31 Encounter for screening mammogram for malignant neoplasm of breast (principal); Z91.89 Other specified personal risk factors, not elsewhere classified | CPT/HCPCS: 77063; 77067 ==

== ENCOUNTER 2022-01-20 00:46 | Inpatient (IN) | payer MEDICARE, BC ==
[2022-01-20] MEDS ORDERED: Ondansetron PF 4 MG/2 ML Vial IVP PRN ×2 (06:08)
[2022-01-20] MEDS ORDERED: Acetaminophen 325 MG TAB PO PRN (06:08)
[2022-01-20] MEDS ORDERED: Lactated Ringer's 1,000 ML IV SCH (06:15)
[2022-01-20] MEDS ORDERED: metroNIDAZOLE 500 MG in Premix Bag 1 BAG IVPB SCH (08:00)
[2022-01-20] MEDS ORDERED: Senokot S 8.6-50 MG TAB PO PRN (08:25)
[2022-01-20] MEDS: Enoxaparin Sodium 40 MG/0.4 ML SYRINGE SC SCH (09:35)
[2022-01-20] MEDS: Famotidine 20 MG TAB PO SCH ×2 (09:36→20:27)
[2022-01-20] MEDS: Sodium Chloride 0.9% 1,000 ML IV SCH ×2 (11:30→20:27)
[2022-01-20] MEDS: metroNIDAZOLE 500 MG in Premix Bag 1 BAG IVPB SCH (19:36)
[2022-01-20 23:27] VITALS: BMI 35.0
[2022-01-21] MEDS: HYDROcodone/Acetaminophen 5/325 mg Tablet PO PRN ×2 (00:12→21:02)
[2022-01-21] MEDS: metroNIDAZOLE 500 MG in Premix Bag 1 BAG IVPB SCH ×3 (03:04→21:02)
[2022-01-21 07:04] LABS: #Basophils 0.1 thou/uL (0.0-0.2); #Eosinphils 0.1 thou/uL (0.0-0.7); #Lymphocytes 2.6 thou/uL (1.20-3.40); #Monocytes 0.7 thou/uL (0.11-0.59); #Neutrophils 4.7 thou/uL (1.40-6.50); %Basophils 0.9 % (0.0-1.0); %Eosinophils 1.1 % (0.0-10.0); %Lymphocytes 31.2 % (21.0-51.0); %Neutrophils 57.9 % (42.0-75.0); Hemoglobin 13.3 g/dL (12.0-16.0); Mean Corpuscular HGB CONC 33.4 g/dL (32.0-36.0); Mean Corpuscular Hemoglobin 30.1 pg (27.0-31.0); Mean Corpuscular Volume 90.1 fL (78.0-98.0); Mean Platelet Volume 7.2 fL (7.4-10.4); Platelet Count 289 thou/uL (130-400); RBC Distribution Width 11.6 % (11.5-14.5); White Blood Cell (WBC) Count 8.2 thou/uL (4.8-10.8)
[2022-01-21 07:20] LABS: Anion Gap 12 mmol/L (10-20); BUN (Urea Nitrogen) 11 mg/dL (9.8-20.1); Calc. Creatinine Clearance 124 mL/min (70-130); Calcium 9.1 mg/dL (7.8-10.44); Carbon Dioxide 25 mmol/L (23-31); Chloride 105 mmol/L (98-107); Glucose 95 mg/dL (83-110); Potassium 3.3 mmol/L (3.5-5.1); Sodium 139 mmol/L (136-145)
[2022-01-21] MEDS: Enoxaparin Sodium 40 MG/0.4 ML SYRINGE SC SCH (09:18)
[2022-01-21] MEDS: Famotidine 20 MG TAB PO SCH ×2 (09:18→21:04)
[2022-01-21] MEDS: Sodium Chloride 0.9% 1,000 ML IV SCH ×2 (09:24→23:44)
[2022-01-21] MEDS ORDERED: Potassium Chloride 20 MEQ TAB PO SCH (14:30)
[2022-01-21] MEDS: Estradiol 1 MG TAB PO SCH (21:03)
[2022-01-21] MEDS: Ramipril 5 MG CAP PO SCH (21:03)
[2022-01-21] MEDS: Rosuvastatin 10 MG TAB PO SCH (21:03)
[2022-01-22] MEDS ORDERED: hydrALAZINE 20 MG/ML VIAL SLOW IVP PRN (00:29)
[2022-01-22] MEDS: metroNIDAZOLE 500 MG in Premix Bag 1 BAG IVPB SCH ×3 (04:12→20:41)
[2022-01-22 06:02] LABS: #Eosinphils 0.1 thou/uL (0.0-0.7); #Lymphocytes 2.1 thou/uL (1.20-3.40); #Monocytes 0.5 thou/uL (0.11-0.59); #Neutrophils 3.8 thou/uL (1.40-6.50); %Basophils 0.4 % (0.0-1.0); %Eosinophils 1.7 % (0.0-10.0); %Lymphocytes 32.3 % (21.0-51.0); %Monocytes 7.6 % (0.0-10.0); %Neutrophils 58.1 % (42.0-75.0); Hemoglobin 13.6 g/dL (12.0-16.0); Mean Corpuscular HGB CONC 32.7 g/dL (32.0-36.0); Mean Corpuscular Hemoglobin 29.7 pg (27.0-31.0); Mean Platelet Volume 7.1 fL (7.4-10.4); Platelet Count 312 thou/uL (130-400); RBC Distribution Width 11.6 % (11.5-14.5); Red Blood Cell (RBC) Count 4.56 mill/uL (4.20-5.40); White Blood Cell (WBC) Count 6.5 thou/uL (4.8-10.8)
[2022-01-22 06:25] LABS: Anion Gap 12 mmol/L (10-20); BUN (Urea Nitrogen) 7 mg/dL (9.8-20.1); CRP (Inflammatory) 5.37 mg/dL (= or < 0.5); Calc. Creatinine Clearance 129 mL/min (70-130); Carbon Dioxide 24 mmol/L (23-31); Chloride 106 mmol/L (98-107); Glucose 130 mg/dL (83-110); Potassium 3.5 mmol/L (3.5-5.1); Sodium 138 mmol/L (136-145)
[2022-01-22] MEDS: Hydrochlorothiazide 25 MG TAB PO SCH (08:30)
[2022-01-22] MEDS: Aspirin 81 mg Enteric Coated Tablet PO SCH (08:31)
[2022-01-22] MEDS: Famotidine 20 MG TAB PO SCH ×2 (08:31→20:42)
[2022-01-22] MEDS: Nadolol 40 MG TAB PO SCH (08:31)
[2022-01-22] MEDS: Clopidogrel Bisulfate 75 MG TAB PO SCH (08:31)
[2022-01-22] MEDS: Enoxaparin Sodium 40 MG/0.4 ML SYRINGE SC SCH (08:32)
[2022-01-22] MEDS ORDERED: Amlodipine 5 MG TAB PO SCH (09:00)
[2022-01-22] MEDS ORDERED: Melatonin 3 MG TAB PO PRN (10:53)
[2022-01-22] MEDS: Ramipril 5 MG CAP PO SCH (20:42)
[2022-01-22] MEDS: Estradiol 1 MG TAB PO SCH (20:42)
[2022-01-22] MEDS: Rosuvastatin 10 MG TAB PO SCH (20:42)
[2022-01-23] MEDS: metroNIDAZOLE 500 MG in Premix Bag 1 BAG IVPB SCH (05:30)
[2022-01-23 05:46] LABS: #Basophils 0.1 thou/uL (0.0-0.2); #Eosinphils 0.2 thou/uL (0.0-0.7); #Lymphocytes 2.5 thou/uL (1.20-3.40); #Monocytes 0.8 thou/uL (0.11-0.59); %Basophils 0.8 % (0.0-1.0); %Eosinophils 2.1 % (0.0-10.0); %Lymphocytes 33.6 % (21.0-51.0); %Monocytes 10.4 % (0.0-10.0); %Neutrophils 53.2 % (42.0-75.0); Hemoglobin 13.9 g/dL (12.0-16.0); Mean Corpuscular HGB CONC 33.3 g/dL (32.0-36.0); Mean Corpuscular Hemoglobin 30.3 pg (27.0-31.0); Mean Corpuscular Volume 90.8 fL (78.0-98.0); Mean Platelet Volume 7.3 fL (7.4-10.4); Platelet Count 336 thou/uL (130-400); RBC Distribution Width 11.7 % (11.5-14.5); Red Blood Cell (RBC) Count 4.61 mill/uL (4.20-5.40); White Blood Cell (WBC) Count 7.6 thou/uL (4.8-10.8)
[2022-01-23 06:03] LABS: Anion Gap 12 mmol/L (10-20); BUN (Urea Nitrogen) 9 mg/dL (9.8-20.1); Calc. Creatinine Clearance 116 mL/min (70-130); Carbon Dioxide 23 mmol/L (23-31); Chloride 105 mmol/L (98-107); Glucose 115 mg/dL (83-110); Potassium 3.4 mmol/L (3.5-5.1); Sodium 137 mmol/L (136-145)
[2022-01-23 07:38] VITALS: BP 160/79; TEMP 98
[2022-01-23] MEDS: Aspirin 81 mg Enteric Coated Tablet PO SCH (08:27)
[2022-01-23] MEDS: Hydrochlorothiazide 25 MG TAB PO SCH (08:27)
[2022-01-23] MEDS: Famotidine 20 MG TAB PO SCH (08:28)
[2022-01-23] MEDS: Enoxaparin Sodium 40 MG/0.4 ML SYRINGE SC SCH (08:28)
[2022-01-23] MEDS: Nadolol 40 MG TAB PO SCH (08:28)
[2022-01-23] MEDS: Clopidogrel Bisulfate 75 MG TAB PO SCH (08:28)
[2022-01-23] MEDS ORDERED: Amlodipine 5 MG TAB PO SCH (09:00)
== END 2022-01-23 11:15 | disposition home or self-care (01) | DRG 392 ==
LOC: INTOOBSV 00:46 → T4-B 00:46 → OBSVTOIN 14:11
PROVIDERS: ADMIT Student in an Organized Health Care Education/Training Program; ATTEND Hospitalist
DX: K57.20 Diverticulitis of large intestine with perforation and abscess without bleeding (principal); Z20.822 Contact with and (suspected) exposure to COVID-19; I10 Essential (primary) hypertension; R73.03 Prediabetes; K52.89 Other specified noninfective gastroenteritis and colitis; E87.6 Hypokalemia; Z79.899 Other long term (current) drug therapy; Z79.82 Long term (current) use of aspirin; Z90.49 Acquired absence of other specified parts of digestive tract; Z98.890 Other specified postprocedural states
CPT/HCPCS: 36415; 80048; 85025; 86140; 96372; 96374; 96375; G0378; J0360; J0744; J1650; J7050; J7120

== ENCOUNTER 2022-03-02 14:03 | Outpatient (CLI) | payer MEDICARE, BC | END 2022-03-02 14:04 | disposition home or self-care (01) | LOC: BICMAMMO 14:03 | PROVIDERS: ATTEND Family Medicine | DX: Z12.31 Encounter for screening mammogram for malignant neoplasm of breast (principal) | CPT/HCPCS: 77063; 77067 ==

== ENCOUNTER 2022-04-09 06:01 | Inpatient (IN) | payer MEDICARE, BC ==
[2022-04-09] MEDS ORDERED: fentaNYL Citrate/PF 100 MCG/2 ML SYRINGE ONE ×2 (06:37→06:38)
[2022-04-09] MEDS ORDERED: Midazolam HCl 2 mg/2 ml Vial ONE (06:37)
[2022-04-09] MEDS ORDERED: cefOXitin 2 GM VIAL ONE ×2 (07:07→10:35)
[2022-04-09] MEDS ORDERED: Sodium Chloride 0.9% 100 ML ONE (07:08)
[2022-04-09] MEDS ORDERED: Rocuronium Bromide 10 MG/ML (10ML VIAL) ONE (07:12)
[2022-04-09] MEDS ORDERED: Lidocaine 1% PF 5 ML VIAL ONE (07:12)
[2022-04-09] MEDS ORDERED: PROPOFOL 200 MG/20 ML VIAL ONE (07:12)
[2022-04-09] MEDS ORDERED: Ondansetron PF 4 MG/2 ML Vial ONE (07:12)
[2022-04-09] MEDS ORDERED: Bupivacaine HCl 0.5%/Epinephrine 1:200,000/PF 30 ml Vial ONE (07:12)
[2022-04-09] MEDS ORDERED: PHENYLEPHRINE-NS 100 MCG/ML 10 ML SYRINGE ONE (07:12)
[2022-04-09] MEDS ORDERED: Glycopyrrolate 0.2 MG/ML 5 ML SYRINGE ONE (07:12)
[2022-04-09] MEDS ORDERED: ePHEDrine 50 MG/ML VIAL ONE (07:12)
[2022-04-09] MEDS ORDERED: Dexamethasone 20 MG/5 ML VIAL ONE (07:12)
[2022-04-09] MEDS ORDERED: Ketorolac Tromethamine 30 MG/ML VIAL IVP PRN (10:43)
[2022-04-09] MEDS ORDERED: Promethazine HCl 25 MG/ML VIAL IVPB PRN (10:43)
[2022-04-09] MEDS ORDERED: Promethazine HCl 25 MG/ML VIAL IM PRN ×3 (10:43→12:27)
[2022-04-09] MEDS ORDERED: Ondansetron HCl/PF 4 MG/2 ML Vial IVP PRN (10:43)
[2022-04-09] MEDS ORDERED: Fentanyl 100 MCG/2 ML VIAL ONE (11:45)
[2022-04-09] MEDS ORDERED: Ondansetron PF 4 MG/2 ML Vial IVP PRN ×2 (11:55→12:27)
[2022-04-09] MEDS ORDERED: hydrALAZINE 20 MG/ML VIAL SLOW IVP PRN (11:55)
[2022-04-09] MEDS ORDERED: Ketorolac Tromethamine 30 MG/ML VIAL ONE (12:04)
[2022-04-09] MEDS ORDERED: Naloxone HCl 0.4 mg/ml Vial IV PRN (12:27)
[2022-04-09] MEDS ORDERED: fentaNYL Citrate/PF 2,000 MCG in Sodium Chloride 0.9% 60 ML IV PRN (12:27)
[2022-04-09] MEDS ORDERED: diphenhydrAMINE 50 MG/ML VIAL IM PRN (12:27)
[2022-04-09] MEDS ORDERED: diphenhydrAMINE 25 MG CAP PO PRN (12:27)
[2022-04-09] MEDS ORDERED: Zolpidem Tartrate 5 MG TAB PO PRN (12:27)
[2022-04-09] MEDS ORDERED: diphenhydrAMINE 50 MG/ML VIAL IVP PRN (12:27)
[2022-04-09] MEDS ORDERED: Communication Order-Pharmacy FS SCH (12:30)
[2022-04-09] MEDS: D5 1/2 NS w/20 mEq KCL 1,000 ML IV SCH ×3 (18:20→21:42)
[2022-04-09] MEDS: cefOXitin 2 GM in Sodium Chloride 0.9% 100 ML IVPB SCH (21:40)
[2022-04-09] MEDS: Famotidine 20 MG TAB PO SCH (21:41)
[2022-04-09] MEDS: Estradiol 1 MG TAB PO SCH (21:42)
[2022-04-10] MEDS: Ramipril 5 MG CAP PO SCH ×3 (04:02→20:54)
[2022-04-10] MEDS: Famotidine/PF 20 mg/2ml Vial SLOW IVP SCH ×2 (04:03→09:19)
[2022-04-10] MEDS: cefOXitin 2 GM in Sodium Chloride 0.9% 100 ML IVPB SCH (04:19)
[2022-04-10] MEDS: D5 1/2 NS w/20 mEq KCL 1,000 ML IV SCH ×3 (07:41→21:15)
[2022-04-10 08:36] LABS: #Lymphocytes 1.6 thou/uL (1.20-3.40); #Monocytes 0.8 thou/uL (0.11-0.59); #Neutrophils 8.6 thou/uL (1.40-6.50); %Lymphocytes 14.7 % (21.0-51.0); %Monocytes 7.3 % (0.0-10.0); %Neutrophils 77.9 % (42.0-75.0); Hemoglobin 12.4 g/dL (12.0-16.0); Mean Corpuscular HGB CONC 32.8 g/dL (32.0-36.0); Mean Corpuscular Volume 91.6 fL (78.0-98.0); Platelet Count 213 thou/uL (130-400); RBC Distribution Width 12.4 % (11.5-14.5); Red Blood Cell (RBC) Count 4.14 mill/uL (4.20-5.40); White Blood Cell (WBC) Count 11.1 thou/uL (4.8-10.8)
[2022-04-10 08:50] LABS: Anion Gap 9 mmol/L (10-20); BUN (Urea Nitrogen) 13 mg/dL (9.8-20.1); Calc. Creatinine Clearance 100 mL/min (70-130); Calcium 8.3 mg/dL (7.8-10.44); Carbon Dioxide 26 mmol/L (23-31); Chloride 106 mmol/L (98-107); Glucose 125 mg/dL (83-110); Potassium 3.4 mmol/L (3.5-5.1); Sodium 138 mmol/L (136-145)
[2022-04-10] MEDS: Famotidine 20 MG TAB PO SCH ×2 (09:10→20:55)
[2022-04-10] MEDS: Enoxaparin Sodium 40 MG/0.4 ML SYRINGE SC SCH (09:10)
[2022-04-10] MEDS ORDERED: Ketorolac Tromethamine 30 MG/ML VIAL IVP PRN (12:18)
[2022-04-10] MEDS: Amlodipine 5 MG TAB PO SCH (14:28)
[2022-04-10] MEDS: Nadolol 40 MG TAB PO SCH (14:29)
[2022-04-10] MEDS: Estradiol 1 MG TAB PO SCH (20:55)
[2022-04-11] MEDS: Famotidine/PF 20 mg/2ml Vial SLOW IVP SCH (02:06)
[2022-04-11] MEDS: D5 1/2 NS w/20 mEq KCL 1,000 ML IV SCH (06:44)
[2022-04-11] MEDS ORDERED: D5 1/2 NS w/20 mEq KCL 1,000 ML IV SCH (09:20)
[2022-04-11] MEDS: Amlodipine 5 MG TAB PO SCH (09:34)
[2022-04-11] MEDS: Enoxaparin Sodium 40 MG/0.4 ML SYRINGE SC SCH (09:36)
[2022-04-11] MEDS: Famotidine 20 MG TAB PO SCH ×2 (09:37→21:17)
[2022-04-11] MEDS: Nadolol 40 MG TAB PO SCH (09:37)
[2022-04-11] MEDS: Ramipril 5 MG CAP PO SCH ×2 (09:38→21:16)
[2022-04-11] MEDS: Acetaminophen 325 MG TAB PO SCH ×3 (09:55→21:16)
[2022-04-11] MEDS: Estradiol 1 MG TAB PO SCH (21:17)
[2022-04-12] MEDS: Acetaminophen 325 MG TAB PO SCH ×4 (05:57→20:54)
[2022-04-12] MEDS: Amlodipine 5 MG TAB PO SCH (08:24)
[2022-04-12] MEDS: Enoxaparin Sodium 40 MG/0.4 ML SYRINGE SC SCH (08:26)
[2022-04-12] MEDS: Famotidine 20 MG TAB PO SCH ×2 (08:26→20:54)
[2022-04-12] MEDS: Ramipril 5 MG CAP PO SCH ×2 (08:26→20:54)
[2022-04-12] MEDS: Nadolol 40 MG TAB PO SCH (08:30)
[2022-04-12] MEDS: Estradiol 1 MG TAB PO SCH (20:54)
[2022-04-13] MEDS: Acetaminophen 325 MG TAB PO SCH ×3 (05:17→16:08)
[2022-04-13] MEDS ORDERED: Fentanyl 100 MCG/2 ML VIAL SLOW IVP PRN (08:29)
[2022-04-13] MEDS ORDERED: traMADol HCl 50 MG TAB PO PRN ×2 (08:29)
[2022-04-13] MEDS: Enoxaparin Sodium 40 MG/0.4 ML SYRINGE SC SCH (09:23)
[2022-04-13] MEDS: Ramipril 5 MG CAP PO SCH (09:24)
[2022-04-13] MEDS: Famotidine 20 MG TAB PO SCH (09:24)
[2022-04-13] MEDS: Nadolol 40 MG TAB PO SCH (09:24)
[2022-04-13] MEDS: Amlodipine 5 MG TAB PO SCH (09:25)
[2022-04-13 16:17] VITALS: BP 146/78; TEMP 98.7
[2022-04-13 20:01] VITALS: BMI 382.4
== END 2022-04-13 16:51 | disposition home health service (06) | DRG 331 ==
LOC: SDC 06:01 → SJJU 11:55 → SURG A 19:58 → SJJU 20:23
PROVIDERS: ADMIT Surgery; ATTEND Surgery
PROC: 0DTN0ZZ Resection of Sigmoid Colon, Open Approach (ICD-10-PCS; principal; 2022-04-09)
PROC: 0DJD4ZZ Inspection of Lower Intestinal Tract, Percutaneous Endoscopic Approach (ICD-10-PCS; 2022-04-09)
PROC: 0D1B0Z4 Bypass Ileum to Cutaneous, Open Approach (ICD-10-PCS; 2022-04-09)
PROC: 0T778DZ Dilation of Left Ureter with Intraluminal Device, Via Natural or Artificial Opening Endoscopic (ICD-10-PCS; 2022-04-09)
DX: K57.92 Diverticulitis of intestine, part unspecified, without perforation or abscess without bleeding (principal); I10 Essential (primary) hypertension; E78.5 Hyperlipidemia, unspecified; R73.03 Prediabetes; N32.9 Bladder disorder, unspecified; Z90.49 Acquired absence of other specified parts of digestive tract
CPT/HCPCS: 36415; 36416; 74018; 80048; 85025; 88307; A4649; C1776; C2617; J0694; J1100; J1200; J1650; J1885; J2250; J2405; J2704; J3010; J3480; J3490

== ENCOUNTER 2022-05-25 10:22 | Outpatient (CLI) | payer MEDICARE, BC | END 2022-05-25 10:23 | disposition home or self-care (01) | LOC: RAD 10:22 | PROVIDERS: ATTEND Surgery | DX: K94.13 Enterostomy malfunction (principal); K63.89 Other specified diseases of intestine | CPT/HCPCS: 74280 ==

== ENCOUNTER 2022-06-01 01:57 | Inpatient (IN) | payer MEDICARE, BC ==
[2022-05-28 14:10] VITALS: BMI 32.5
[2022-06-01] MEDS ORDERED: Lidocaine 2% 6 ML SYR ONE (11:26)
[2022-06-01] MEDS ORDERED: fentaNYL Citrate/PF 100 MCG/2 ML SYRINGE ONE (11:26)
[2022-06-01 11:48] LABS: Bilirubin Negative (Negative); Blood, Urine Negative (Negative); Clarity Turbid (Clear); Glucose, Urine (Dipstick) Normal (Negative); Ketone, Urine Negative (Negative); Leukocyte Negative Leu/uL (Negative); Nitrite Negative (Negative); Protein, Urine (Dipstick) 10 mg/dL (Neg-Trace); RBC/HPF 0-3 HPF (0-3); Specific Gravity, Urine 1.023 (1.002-1.036); Urobilinogen Normal mg/dL (Less than 2); WBC/HPF 0-3 HPF (0-3)
[2022-06-01 11:50] LABS: Anion Gap 17 mmol/L (10-20); BUN (Urea Nitrogen) 11 mg/dL (9.8-20.1); Calc. Creatinine Clearance 96 mL/min (70-130); Calcium 9.2 mg/dL (7.8-10.44); Carbon Dioxide 24 mmol/L (23-31); Chloride 104 mmol/L (98-107); Estimated GFR 94; Glucose 121 mg/dL (83-110); Potassium 4.2 mmol/L (3.5-5.1); Sodium 141 mmol/L (136-145)
[2022-06-01 11:52] LABS: Bacteria/HPF Rare-Few HPF (None Seen)
[2022-06-01] MEDS ORDERED: Midazolam HCl 2 mg/2 ml Vial ONE (11:55)
[2022-06-01] MEDS ORDERED: Sodium Chloride 0.9% 100 ML ONE (11:58)
[2022-06-01] MEDS ORDERED: cefOXitin 2 GM VIAL ONE (11:58)
[2022-06-01] MEDS ORDERED: PROPOFOL 200 MG/20 ML VIAL ONE (12:08)
[2022-06-01] MEDS ORDERED: Dexamethasone 20 MG/5 ML VIAL ONE (12:08)
[2022-06-01] MEDS ORDERED: Lidocaine 1% PF 5 ML VIAL ONE (12:08)
[2022-06-01] MEDS ORDERED: Rocuronium Bromide 10 MG/ML (10ML VIAL) ONE (12:08)
[2022-06-01] MEDS ORDERED: Glycopyrrolate 0.2 MG/ML 5 ML SYRINGE ONE (12:08)
[2022-06-01] MEDS ORDERED: Promethazine HCl 25 MG/ML VIAL IVPB PRN (12:49)
[2022-06-01] MEDS ORDERED: Promethazine HCl 25 MG/ML VIAL IM PRN ×2 (12:49→14:02)
[2022-06-01] MEDS ORDERED: Ondansetron HCl/PF 4 MG/2 ML Vial IVP PRN (12:49)
[2022-06-01] MEDS ORDERED: Ondansetron PF 4 MG/2 ML Vial IVP PRN (14:02)
[2022-06-01] MEDS ORDERED: hydrALAZINE 20 MG/ML VIAL SLOW IVP PRN (14:02)
[2022-06-01] MEDS ORDERED: Fentanyl 100 MCG/2 ML VIAL SLOW IVP PRN (14:02)
[2022-06-01] MEDS ORDERED: Fentanyl 100 MCG/2 ML VIAL ONE (14:14)
[2022-06-01] MEDS: D5 1/2 NS w/20 mEq KCL 1,000 ML IV SCH ×2 (16:20→22:57)
[2022-06-01] MEDS: Famotidine/PF 20 mg/2ml Vial SLOW IVP SCH (19:40)
[2022-06-01] MEDS ORDERED: cefOXitin Sodium 1 GM in Sodium Chloride 0.9% 100 ML IVPB SCH (20:00)
[2022-06-01] MEDS ORDERED: traMADol HCl 50 MG TAB PO PRN (21:30)
[2022-06-01] MEDS: Famotidine 20 MG TAB PO SCH (21:38)
[2022-06-02] MEDS: traMADol HCl 50 MG TAB PO PRN ×2 (03:10→09:57)
[2022-06-02] MEDS: Famotidine/PF 20 mg/2ml Vial SLOW IVP SCH (08:38)
[2022-06-02] MEDS ORDERED: Hydrochlorothiazide 25 MG TAB PO SCH (09:00)
[2022-06-02] MEDS ORDERED: Nadolol 40 MG TAB PO SCH (09:00)
[2022-06-02] MEDS ORDERED: Ramipril 5 MG CAP PO SCH ×2 (09:00→21:00)
[2022-06-02] MEDS ORDERED: Enoxaparin Sodium 40 MG/0.4 ML SYRINGE SC SCH (09:00)
[2022-06-02] MEDS: Famotidine 20 MG TAB PO SCH (09:00)
[2022-06-02 11:57] VITALS: BP 136/82; TEMP 97.6
[2022-06-02] MEDS ORDERED: HYDROcodone/Acetaminophen 7.5/325 mg Tablet PO PRN (13:57)
[2022-06-02] MEDS ORDERED: Acetaminophen 325 MG TAB PO PRN (13:58)
== END 2022-06-02 17:14 | disposition home or self-care (01) | DRG 331 ==
LOC: SURG A 10:07
PROVIDERS: ADMIT Surgery; ATTEND Surgery
PROC: 0DBB0ZZ Excision of Ileum, Open Approach (ICD-10-PCS; principal; 2022-06-01)
PROC: 0TBB8ZX Excision of Bladder, Via Natural or Artificial Opening Endoscopic, Diagnostic (ICD-10-PCS; 2022-06-01)
DX: K94.13 Enterostomy malfunction (principal); Z20.822 Contact with and (suspected) exposure to COVID-19; I10 Essential (primary) hypertension; E78.5 Hyperlipidemia, unspecified; N30.80 Other cystitis without hematuria; Y83.3 Surgical operation with formation of external stoma as the cause of abnormal reaction of the patient, or of later complication, without mention of misadventure at the time of the procedure; Z79.899 Other long term (current) drug therapy; Z79.82 Long term (current) use of aspirin; Z79.02 Long term (current) use of antithrombotics/antiplatelets; Z90.49 Acquired absence of other specified parts of digestive tract; Z90.710 Acquired absence of both cervix and uterus; Z86.74 Personal history of sudden cardiac arrest; Z87.440 Personal history of urinary (tract) infections; Z86.12 Personal history of poliomyelitis
CPT/HCPCS: 36416; 80048; 81001; 87086; 88305; 93005; 93010; J0694; J1100; J2250; J2704; J3010; J3480; J3490

== ENCOUNTER 2023-03-11 11:59 | Outpatient (CLI) | payer MEDICARE, BC | END 2023-03-11 12:00 | disposition home or self-care (01) | LOC: BICMAMMO 11:59 | PROVIDERS: ATTEND Family Medicine | DX: Z12.31 Encounter for screening mammogram for malignant neoplasm of breast (principal); Z91.89 Other specified personal risk factors, not elsewhere classified | CPT/HCPCS: 77063; 77067 ==

== ENCOUNTER 2025-06-26 13:51 | Outpatient (CLI) | payer MEDICARE | END 2025-06-26 13:52 | disposition home or self-care (01) | LOC: BICMAMMO 13:51 | PROVIDERS: ATTEND Physician Assistant | DX: Z78.0 Asymptomatic menopausal state (principal) | CPT/HCPCS: 77080 ==